=== PATIENT | female | born 1980 | race Caucasian/White ===

== ENCOUNTER 2018-08-07 14:12 | Outpatient (CLI) | payer MEDICAID, SELFPAY ==
--- NOTE | 2018-08-07 14:24 | DI.US_ITS ---
SYMPTOM/DIAGNOSIS: G3 T2 PO AO L2, OB ULTRASOUND: No prior comparison exams are available. There is a single intrauterine gestation in cephalic position. The placenta is posterior. The biometric measurements correspond to the 27 weeks 4 days. The estimated weight is 1019 grams, corresponding to the 82% percentile. The amount of amniotic fluid appears normal. There is dilatation of the left renal pelvis to 10 mm consistent with hydronephrosis. No bladder abnormality is identified. The right renal pelvis appears normal. IMPRESSION: Dilatation of the left renal pelvis. Many abnormalities cannot be diagnosed. A normal exam does not exclude a congenital anomaly. Radiology No. [id number] LMP: 01/31/18 Exam Date: 08/07/18 [facility] wks days on EDC ([facility]) 11/13/18 Confirmed: HISTORY: routine anatomy scan ---- PREDICTED GESTATIONAL AGE NUMBER 26 weeks with a range of 25 week to 27 weeks. 1 Determined by___1STUS_XX__LMP___HISTORY Info. pertaining to fetus # PLACENTA PRESENTATION Grade I Cephalic__XX_ Anterior___Posterior__XX_ Breech____ Right Left Transverse(head right___ Fundal___Low-lying___Previa___ Transverse(head left___ Varying BIOMETRY AMNIOTIC FLUID BPD: 70 mm 28 +1 weeks Normal HC: 265 mm 28 +6 weeks AC: 226 mm 27 - weeks FL: 49 mm 26 +3 weeks AMNIOTIC FLUID INDEX >26 WK CRL: mm weeks Cisterna Magna: 8 mm CI: 0,78 RUQ: LUQ Cerebellum: 3.0 cm EFW: 1019 grams 82% Percentile RLQ: LLQ Total: cms Composite AGE= 27 +4 wks EDC by US___11/02/18 BIOPHYSICAL PROFILE ANATOMY IDENTIFIED SCORE 0/2 Heart: 4-Chamber_X__Rate:BPM_143____ LVOT:____X RVOT:___X Amniotic Fluid(>2cms)____ Stomach:__X Kidneys:__X__See Below___ Respirations (>30 secs) Bladder:____X____ Post. Fossa: X Body Flex/Extension 3 vessel cord:__X Ventricles:____X cord insertion:_X____ Lips:__X__ Extremity Flex/Extension spinal morphology:_X Nose:X Total Score= Palate:___X____ NS=not seen COMMENTS: RIGHT URETERAL PEKLVIS 4.6 MM LEFT HYDRONEPHROSIS, PELVIS 10.3 MM
== END 2018-08-07 14:32 ==
PROVIDERS: PCP Family Medicine; Visit Provider Midwife
DX: Z34.92 Encounter for supervision of normal pregnancy, unspecified, second trimester (principal)
CPT/HCPCS: 76805

== ENCOUNTER 2018-12-20 17:28 | Emergency (ER) | payer MEDICAID, SELFPAY ==
--- NOTE | 2018-12-20 17:31 | W.ED.GENAD ---
Discharge Plan Disposition Patient Disposition: HOME Condition: Stable Discharge Details Chief Complaint: AnimalBite Clinical Impression: Dog bite of left lower leg Primary Care Provider: Sarah Jessica ED Provider: Cecilio Hollis Home Meds and New Rx's Prescriptions: New amoxicillin-pot clavulanate [Augmentin] 875-125 mg tablet 1 tab PO BID Qty: 10 RF: 0 No Action multivitamin Tablet 1 tab PO DAILY RF: 0 ascorbic acid (vitamin C) [Vitamin C] 500 mg Tablet 1,500 mg PO DAILY RF: 0 cholecalciferol (vitamin D3) [Vitamin D3] 1,000 unit Capsule 7,000 unit PO DAILY RF: 0 Discharge Instructions Instructions: Animal Bite (ED) Additional Instructions: if you develop severe worsening pain or fevers return to the emergency department for reevaluation Medical Decision Making 38 yo female who denies chronic medical problems comes in with left lower leg wound. She states she was bit by a vaccinated tenants dog last tuesday. She has had redness around it and clear fluid from central wound so came for an eval. Denies fevers. Has a 0.5cm area where the dog bit here with 2cm surrounding warm erythema skin. no fluctuance to suggest abscess, appears to be cellulitis and will start abx. She appears well systemically so doubt sepsis and no sever epain to suggest nec fasc. she should be updated on her tetanus vaccines but she is declining at this time after being told risks and benefits, has capacity to make her own decisions. Advised her pcp should be able to give her the tetanus vaccine Differential Diagnosis cellulitis, abscess HPI General Mode of arrival: ambulatory. Date/Time Provider Initiated Documentation: 12/20/18 17:30. Limitations to Documentation: no limitations. Information obtained by: patient. History of Present Illness 38 year old F presents to the emergency department with the chief complaint of left leg dog bite, described as mild, and is localized to the left and lower extremity. Patient reports no radiation. Patient started experiencing this day(s) (5) and it has been constant. No relieving factors improve symptom(s), No exacerbating factors reported . Patient did receive the following treatments prior to arrival, none Related Data Home Medications Medication Instructions Recorded Confirmed amoxicillin-pot clavulanate 1 tab PO BID #10 tab 12/20/18 [Augmentin] ascorbic acid (vitamin C) [Vitamin 1,500 mg PO DAILY 12/20/18 12/20/18 C] cholecalciferol (vitamin D3) 7,000 unit PO DAILY 12/20/18 12/20/18 [Vitamin D3] multivitamin 1 tab PO DAILY 12/20/18 12/20/18 Previous Rx's Medication Instructions Recorded amoxicillin-pot clavulanate 1 tab PO BID #10 tab 12/20/18 [Augmentin] Allergies Allergy/AdvReac Type Severity Reaction Status Date / Time No Known Allergies Allergy Unverified 12/20/18 17:39 Review of Systems Review of Systems All systems reviewed & are unremarkable except as noted in HPI and below Constitutional Denies chills, Denies fever(s) and Denies weakness Cardiovascular Denies chest pain and Denies dyspnea Respiratory Denies cough and Denies dyspnea Gastrointestinal Denies abdominal pain, Denies nausea and Denies vomiting Neurologic Denies weakness Endocrine Denies heat intolerance PFSH Social History Smoking/Tobacco Use Status: Never Alcohol Intake: never Drug use: Never Substance use type: does not use Do you feel safe at home: Yes Do you feel safe in your relationship?: Yes Exam Const General: no acute distress Orientation: alert HENMT Head: normal to inspection Ears: external ears normal General nose exam: external nose normal Mouth: moist mucous membranes Eyes General: appearance normal, both eyes and all related structures Neck Neck: normal visual inspection Resp Effort & Inspection: normal respiratory effort and able to speak in complete sentences Cardio Rate: regular rate Skin General skin exam: no rashes or lesions noted Neuro General: alert and oriented x3 Extrem General: normal capillary refill Psych Mental Status: mental status grossly normal
[2018-12-20 17:34] VITALS: BP 138/84; PULSE 71; RESP 18; TEMP 36.7; O2SAT 99
--- NOTE | 2018-12-20 17:49 | ED.GENADUL_ITS ---
Discharge Plan Disposition Patient Disposition: HOME Condition: Stable Discharge Details Chief Complaint: AnimalBite Clinical Impression: Dog bite of left lower leg Primary Care Provider: Sarah Jessica ED Provider: Cecilio Hollis Home Meds and New Rx's Prescriptions: New amoxicillin-pot clavulanate [Augmentin] 875-125 mg tablet 1 tab PO BID Qty: 10 RF: 0 No Action multivitamin Tablet 1 tab PO DAILY RF: 0 ascorbic acid (vitamin C) [Vitamin C] 500 mg Tablet 1,500 mg PO DAILY RF: 0 cholecalciferol (vitamin D3) [Vitamin D3] 1,000 unit Capsule 7,000 unit PO DAILY RF: 0 Discharge Instructions Instructions: Animal Bite (ED) Additional Instructions: if you develop severe worsening pain or fevers return to the emergency department for reevaluation Medical Decision Making 38 yo female who denies chronic medical problems comes in with left lower leg wound. She states she was bit by a vaccinated tenants dog last tuesday. She has had redness around it and clear fluid from central wound so came for an eval. Denies fevers. Has a 0.5cm area where the dog bit here with 2cm surrounding warm erythema skin. no fluctuance to suggest abscess, appears to be cellulitis and will start abx. She appears well systemically so doubt sepsis and no sever epain to suggest nec fasc. she should be updated on her tetanus vaccines but she is declining at this time after being told risks and benefits, has capacity to make her own decisions. Advised her pcp should be able to give her the tetanus vaccine Differential Diagnosis cellulitis, abscess HPI General Mode of arrival: ambulatory . Date/Time Provider Initiated Documentation: 12/20/18 17:30 . Limitations to Documentation: no limitations . Information obtained by: patient . History of Present Illness 38 year old F presents to the emergency department with the chief complaint of left leg dog bite, described as mild, and is localized to the left and lower extremity. Patient reports no radiation. Patient started experiencing this day(s) (5) and it has been constant. No relieving factors improve symptom(s), No exacerbating factors reported . Patient did receive the following treatments prior to arrival, none Related Data Home Medications Medication Instructions Recorded Confirmed amoxicillin-pot clavulanate 1 tab PO BID #10 tab 12/20/18 [Augmentin] ascorbic acid (vitamin C) [Vitamin 1,500 mg PO DAILY 12/20/18 12/20/18 C] cholecalciferol (vitamin D3) 7,000 unit PO DAILY 12/20/18 12/20/18 [Vitamin D3] multivitamin 1 tab PO DAILY 12/20/18 12/20/18 Previous Rx's Medication Instructions Recorded amoxicillin-pot clavulanate 1 tab PO BID #10 tab 12/20/18 [Augmentin] Allergies Allergy/AdvReac Type Severity Reaction Status Date / Time No Known Allergies Allergy Unverified 12/20/18 17:39 Review of Systems Review of Systems All systems reviewed & are unremarkable except as noted in HPI and below Constitutional Denies chills, Denies fever(s) and Denies weakness Cardiovascular Denies chest pain and Denies dyspnea Respiratory Denies cough and Denies dyspnea Gastrointestinal Denies abdominal pain, Denies nausea and Denies vomiting Neurologic Denies weakness Endocrine Denies heat intolerance PFSH Social History Smoking/Tobacco Use Status: Never Alcohol Intake: never Drug use: Never Substance use type: does not use Do you feel safe at home: Yes Do you feel safe in your relationship?: Yes Exam Const General: no acute distress Orientation: alert HENMT Head: normal to inspection Ears: external ears normal General nose exam: external nose normal Mouth: moist mucous membranes Eyes General: appearance normal, both eyes and all related structures Neck Neck: normal visual inspection Resp Effort & Inspection: normal respiratory effort and able to speak in complete sentences Cardio Rate: regular rate Skin General skin exam: no rashes or lesions noted Neuro General: alert and oriented x3 Extrem General: normal capillary refill Psych Mental Status: mental status grossly normal
--- NOTE | 2018-12-21 11:46 | NUR.NOTE ---
Nursing Note: Unable to access the [facility] website for [facility] health officers. Called [facility] Clerk this morning and faxed the animal bite report to that office for follow up. She stated she would be sure health officer got the information. Chrissie Zamora
== END 2018-12-20 17:56 | disposition home or self-care (01) ==
PROVIDERS: Emergency Provider Emergency Medicine; PCP Family Medicine
DX: S81.852A Open bite, left lower leg, initial encounter (principal); W54.0XXA Bitten by dog, initial encounter
CPT/HCPCS: 99283

== ENCOUNTER 2019-11-26 09:33 | Outpatient (CLI) | payer MEDICAID, SELFPAY ==
[2019-11-27 17:45] LABS: SARS-CoV-2 RNA Undetected (Undetected); SARS-CoV-2 Specimen Source Nasopharynx
== END 2019-11-26 09:53 ==
PROVIDERS: Family Medicine; PCP Family Medicine; Visit Provider Registered Nurse
DX: Z20.828 Contact with and (suspected) exposure to other viral communicable diseases (principal); Z11.59 Encounter for screening for other viral diseases; R05 Cough
CPT/HCPCS: 87449; U0003

== ENCOUNTER 2021-06-30 17:03 | Outpatient (REF) | payer MEDICAID, SELFPAY ==
[2021-06-30 21:39] LABS: Hemoglobin A1C 5.7 % (<5.7)
[2021-06-30 21:49] LABS: ALT 19 U/L (14-59); AST 14 U/L (15-37); Albumin 3.7 g/dL (3.4-5.0); Alkaline Phosphatase 67 U/L (46-116); Anion Gap 9.9 mmol/L (3-11); BUN 11 mg/dL (7-18); Bilirubin, Total 0.3 mg/dL (0.2-1.0); CO2 26.1 mmol/L (21.0-32.0); CREATININE 0.8 mg/dL (0.55-1.02); Calculated LDL 115 mg/dL (<100); Chloride 104 mmol/L (98-107); Cholesterol 177 mg/dL (<200); Glucose 88 mg/dL (74-106); HDL Cholesterol 38 mg/dL (40-60); Potassium 4.2 mmol/L (3.5-5.1); Sodium 140 mmol/L (136-145); TSH (W/Ref FT4) 1.98 uIU/mL (0.36-3.74); Total Protein 7.1 g/dL (6.4-8.2); Triglyceride 122 mg/dL (<150)
== END 2021-06-30 17:04 | disposition home or self-care (01) ==
LOC: NCHCN 17:03
PROVIDERS: PCP Family Medicine; Visit Provider Family Medicine
DX: Z13.220 Encounter for screening for lipoid disorders (principal); Z13.1 Encounter for screening for diabetes mellitus; E66.9 Obesity, unspecified
CPT/HCPCS: 80053; 80061; 83036; 84443

== ENCOUNTER 2021-07-08 11:29 | Outpatient (REF) | payer MEDICAID, SELFPAY ==
--- NOTE | 2021-07-08 08:45 | PAPFT_PTH ---
PATIENT: Eunice Zamudio LOC: [facility] U#:[id number] AGE/SX: 40/F ROOM: RE07/08/[address]: Caroline Cochran CNM : 1980 BED: DIS: 07/08/2021 SPEC #: [id number] RECD: 07/08/21 13:10 STATUS: PATRICIA RELondon #: [id number] MEÑO: 07/08/21 08:[address]: Caroline Cochran [facility]PT[facility] Cytology RECD BY: Britta Bowden ENTERED: 07/08/21 13:10 SP TYPE: PAPFT OTHR DR: Sarah Jessica Tissues: 1 - CX/ENDOCX FOR PAP SMEARS Procedures: PAP THIN PREP/UVM Screening HPV DNA PROBE Comments:
== END 2021-07-08 11:30 | disposition home or self-care (01) ==
LOC: LBN 11:29
PROVIDERS: PCP Family Medicine; Visit Provider Advanced Practice Midwife
DX: Z12.4 Encounter for screening for malignant neoplasm of cervix (principal); Z11.51 Encounter for screening for human papillomavirus (HPV)
CPT/HCPCS: 88142; 87624

== ENCOUNTER 2022-05-04 12:39 | Outpatient (REF) | payer MEDICAID, SELFPAY ==
--- NOTE | 2022-05-04 10:10 | SKI_PTH ---
PATIENT: Eunice Zamudio LOC: [facility] U#:[id number] AGE/SX: 41/F ROOM: RE05/04/[address]: Sherlyn oHllis MD : 1980 BED: DIS: 05/04/2022 SPEC #: [id number] RECD: 05/04/22 12:44 STATUS: PATRICIA RELondon #: [id number] MEÑO: 05/04/22 10:[address]: Sherlyn Hollis DEPT: Surgical Specimen RECD BY: Britta Bowden ENTERED: 05/04/22 12:45 SP TYPE: BOBBY HEIN DR: Sarah Jessica Tissues: 1 - SKIN BIOPSY(SHAVE/PUNCH) Procedures: IMMUNOPEROXIDASE STAIN SKIN LEVEL 4 Comments: [id number]
== END 2022-05-04 12:40 | disposition home or self-care (01) ==
LOC: LBN 12:39
PROVIDERS: PCP Family Medicine; Visit Provider Surgery
DX: D17.0 Benign lipomatous neoplasm of skin and subcutaneous tissue of head, face and neck (principal)
CPT/HCPCS: 88305; 88361

== ENCOUNTER 2022-08-16 16:54 | Emergency (ER) | payer MEDICAID, SELFPAY ==
[2022-08-16 17:03] VITALS: BP 151/91; PULSE 70; RESP 16; TEMP 36.9; O2SAT 100
--- NOTE | 2022-08-16 17:22 | W.ED.GENAD ---
Discharge Plan Disposition Patient Disposition: Home Condition: Good Discharge Details Clinical Impression: Headache Primary Care Provider: Sarah Jessica ED Provider: Blaine Bowman Home Meds and New Rx's Prescriptions: No Action cbd PO DAILY Adult 50 Plus Probiotic 4 billion cell capsule PO multivitamin Tablet 1 tab PO DAILY cholecalciferol (vitamin D3) [Vitamin D3] 1,000 unit Capsule 7,000 unit PO DAILY Discharge Instructions Instructions: General Headache (ED) Additional Instructions: At this time your exam is reassuring. Your symptoms appear clinically consistent with a migraine headache causing an aura. As we discussed together we have decided to hold off on CT imaging at this time. Please take Tylenol and Motrin at home. Please drink plenty of fluids and follow-up closely with your primary care provider. If you notice any worsening of your symptoms, or any new symptoms such as vomiting, diarrhea, fever, chills, shortness of breath, chest pain, numbness, weakness, or fainting , please return immediately to the emergency department for reevaluation. Please follow up with your primary care provider as soon as possible for reassessment and reevaluation. As always, it was a pleasure participating in your medical care today. Referrals: Sarah Jessica [Primary Care Provider] - Medical Decision Making 42-year-old female with no significant past medical history except for occasional tension headaches presents today for evaluation of mild headache and some transient vision changes. Patient states that noon today she noticed some kaleidoscope like changes in her lateral vision in her left eye, this resolved after about 10 minutes. It then began in her right eye shortly thereafter, then within 15 to 20 minutes after this she developed a mild headache. The patient denies any headache red flags of worst headache of life, thunderclap headache, neck pain, fever, chills, concerning family history of polycystic kidney disease, Marfan syndrome, Linda-Danlos syndrome, abdominal aortic aneurysm, aortic dissection, or intracranial aneurysm. Currently the patient states that her headache is notably mild and dissipating. She states that the vision changes have completely resolved. She denies any family history of stroke, brain cancer at a young age, or other complaints. She denies any oral contraceptive use. No drugs or LSD. No other complaints at this time. Exam demonstrates a notably normal neurologic assessment, no focal neurologic deficits, retinal exam demonstrates normal optic disc, no evidence of a pale macula, or atypical vascular pathology. Vision is stable/normal. No nuchal rigidity. Headache notably dissipated at time of exam. No other abnormalities on exam. Patient denied any curtain coming down over her vision, she denies any lightning strikes in her vision, she denies any eye pain whatsoever. The headache itself was mild and in a bandlike sensation around the front of the head. Patient feels well. We discussed options of imaging, and through shared decision-making process, weighing the risks and benefits, utilizing family decision making we have decided with the patient to hold off on any CT imaging for the time being as his symptoms have resolved, and the symptoms that she does have appear to be clinically consistent with an aura secondary to a mild migraine. Patient would like to go home. I did make it clear to the patient that she can return at any time for imaging if she does like. I have extensively reviewed the treatment plan and discharge instructions with the patient and their family. I have addressed all patient concerns at this time. The patient and family was made aware of what symptoms to monitor for that would warrant a return to the emergency department. Discussed the plan with the patient and family, they demonstrate verbal understanding and agreement with our assessment and plan at this time. The documentation in this chart was dictated using [employer] dictation software. Please excuse any dictation errors. HPI General Date/Time Provider Initiated Documentation: 08/16/22 17:03. HPI Narrative: 42-year-old female with no significant past medical history except for occasional tension headaches presents today for evaluation of mild headache and some transient vision changes. Patient states that noon today she noticed some kaleidoscope like changes in her lateral vision in her left eye, this resolved after about 10 minutes. It then began in her right eye shortly thereafter, then within 15 to 20 minutes after this she developed a mild headache. The patient denies any headache red flags of worst headache of life, thunderclap headache, neck pain, fever, chills, concerning family history of polycystic kidney disease, Marfan syndrome, Linda-Danlos syndrome, abdominal aortic aneurysm, aortic dissection, or intracranial aneurysm. Currently the patient states that her headache is notably mild and dissipating. She states that the vision changes have completely resolved. She denies any family history of stroke, brain cancer at a young age, or other complaints. She denies any oral contraceptive use. No drugs or LSD. No other complaints at this time. Related Data Home Medications Medication Instructions Recorded Confirmed cholecalciferol (vitamin D3) 25 7,000 unit PO DAILY 12/20/18 05/18/22 mcg (1,000 unit) capsule (Vitamin D3) multivitamin 1 tab PO DAILY 12/20/18 05/18/22 cbd PO DAILY 07/08/21 05/18/22 lactobacillus combination no.9 4 PO 07/10/21 05/18/22 billion cell capsule (Adult 50 Plus Probiotic) Allergies Allergy/AdvReac Type Severity Reaction Status Date / Time No Known Allergies Allergy Unverified 05/04/22 09:57 General Stated Complaint: EyeProblem HERBER: 3 Review of Systems All systems reviewed & are unremarkable except as noted in HPI and below PFSH All Active Problems Headache (Acute) Skin lesion (Acute) Prolapse of female genital organs (Acute) Annual physical exam (Acute) Medical History Chronic right hip pain Elevated blood pressure reading in office without diagnosis of hypertension Lipoma of head Obesity (BMI 35.0-39.9 without comorbidity) Refused influenza vaccine Surgical History History of appendectomy Social History Smoking/Tobacco Use Status: Never Smoking risk assessment performed?: Yes Alcohol Intake: never Drug use: Never Substance use type: does not use Do you feel safe at home: Yes Do you feel safe in your relationship?: Yes History History 3 Para 3 Hx # Term Pregnancies Multiple births Hx # Pregnancies Ectopic pregnancies AB induced Hx Number of Living Children AB spontaneous Exam Narrative Exam Narrative: 1.Const: Well-nourished, Well-developed, appearing stated age 2.Eyes: PERRL, no conjunctival injection, and symmetrical lids. Left and right eye: EOMI, PERRL, Peripheral vision intact. No nystagmus. Fundoscopic exam shows normal optic discs and normal vasculature. No clinical signs of septal/orbital cellulitis, no redness around the eye, no proptosis. No hyphema, no signs of trauma around the eye, no periorbital emphysema. No sluggishness of the pupil. No ophthalmoplegia. No afferent pupillary defect. Visual acuity as documented in chart and normal Patient demonstrates good movement of cervical neck. There is no nuchal rigidity, no nuchal tenderness. Patient is able to flex the neck without any difficulty or significant pain. Negative Kernig's and Brudzinski sign. 3.ENT: Atraumatic external nose and ears. Moist MM. Neck: Symmetric, trachea midline, No thyromegaly. 4.CVS: +S1/S2, No murmurs or gallops. Peripheral pulses 2+ and equal in all extremities. Brisk capillary refill in all extremities. 5.RESP: Unlabored respiratory effort. Clear to auscultation bilaterally. No wheezes rales or rhonchi 6.GI: Soft, Nontender/Nondistended, No hepatosplenomegaly. No guarding or rebound. 7.MSK: Normocephalic/Atraumatic, Extremities w/o deformity or ttp No cyanosis or clubbing, Normal movement of all extremities 8.Skin: Warm, Dry. No rashes or lesions. 9.Neuro: professor of fine art II-XII grossly intact. Sensation grossly intact, no focal neurologic deficits. All 6 cardinal planes of vision are fully intact. No evidence of rotatory or vertical nystagmus. The patient demonstrated a normal evratf-kxmb-kqryun, good dexterity. There was no evidence of dysdiadochokinesia. Patient was able to ambulate without difficulty. There was no wide-based gait. Romberg testing was normal. Sciu-ag-fdvp testing was normal. Sensation was intact bilaterally as well as muscle strength bilaterally for all extremities. Patient was able to verbalize butter cup with no slurring, or miss pronunciation. 10.Psych: (AAO) x3. Appropriate mood and affect Course Vital Signs Vital signs: Vital Signs Temperature 36.9 C 08/16/22 17:03 Pulse 70 08/16/22 17:03 Respiratory Rate 16 08/16/22 17:03 Blood Pressure 151/91 H 08/16/22 17:03 Pulse Oximetry 100 08/16/22 17:03 Temperature 36.9 C 08/16/22 17:03 Temperature Source Skin 08/16/22 17:03 Pulse 70 08/16/22 17:03 Respiratory Rate 16 08/16/22 17:03 Blood Pressure 151/91 H 08/16/22 17:03 Blood Pressure Position Sitting 08/16/22 17:03 Pulse Oximetry 100 08/16/22 17:03 Oxygen Delivery Method Room Air 08/16/22 17:03 Oxygen Flow Rate 0 08/16/22 17:03 Pain Level 5 08/16/22 17:03
== END 2022-08-16 17:36 | disposition home or self-care (01) ==
PROVIDERS: Emergency Provider Student in an Organized Health Care Education/Training Program; PCP Family Medicine
DX: R51.9 Headache, unspecified (principal); H53.8 Other visual disturbances
CPT/HCPCS: 99282

== ENCOUNTER 2022-10-19 01:41 | Outpatient (CLI) | payer MEDICAID, SELFPAY ==
--- NOTE | 2022-10-19 08:00 | DI.MAMMO_ITS ---
Exam(s) MAMMO SCREENING EXAM: MAMMO SCREENING CLINICAL HISTORY: screening,Z12.39 TECHNIQUE: Bilateral full field digital CC and MLO mammographic images were obtained with 3D tomosyn thesis and utilizing computer aided detection (CAD). COMPARISON: None. FINDINGS: Masses/Architectural Distortion: None seen. Microcalcifications: No suspicious pleomorphic-type are seen. Skin Thickening/Nipple Retraction: None. IMPRESSION: 1. No significant interval change with no specific features of malignancy noted. 2. Unless there is more urgent need, screening mammography is recommended, as per [employer] guidelines. BI-RADS Category 1 - Negative Breast Density - Category B - Scattered areas of fibroglandular density Breast density category C or D implies that the patient has dense breast tissue. Dense breast tissue is very common and is not abnormal but dense breast tissue can make it harder to find cancer on a ma mmogram. Also, dense breast tissue may increase their breast cancer risk. This information about the result of the mammogram report was provided to the patient to raise their awareness. Use this report when you speak with the patient about their risks for breast cancer, which includes their family hist ory. At that time, you may recommend for more screening tests (Ultrasound or MRI) as they might be us eful based on their risk. A negative radiographic report should not delay biopsy if a dominant or clinically suspicious mass is present. Up to ten percent of cancers are not identified on mammography. A negative report may reinforce clinical impression. Adenosis and dense breasts may obscure an underlying neoplasm. False positive reports average 6 to 10%. Patient will receive a letter notifying them of these results.
== END 2022-10-19 02:01 ==
LOC: DI 01:42
PROVIDERS: PCP Family Medicine; Visit Provider Nurse Practitioner Women's Health
DX: Z12.31 Encounter for screening mammogram for malignant neoplasm of breast (principal)
CPT/HCPCS: 77063; 77067

== ENCOUNTER 2022-11-01 00:56 | Outpatient (CLI) | payer MEDICAID, SELFPAY ==
--- NOTE | 2022-11-01 06:45 | DI.US_ITS ---
Exam(s) US PELVIS TRANSVAGINAL EXAM: US PELVIS TRANSVAGINAL CLINICAL HISTORY: Pelvic cramping, postcoital bleeding,r10.2,pelvic pain TECHNIQUE: Transabdominal and transvaginal imaging was performed using standard protocol. COMPARISON: No exams were available for comparison FINDINGS: UTERUS: Anteverted. 8.5 x 5.6 x 6.4 cm Endometrium: 8 mm Myometrium: Unremarkable. Cervix: Unremarkable. OVARIES: Right: Cyst or mass: 2.4 centimeter para ovarian cyst. Left: Cyst or mass: None. DOPPLER: Color: Symmetric and uniform flow to both ovaries. No hyperemia. CUL-DE-SAC: Free fluid: Small amount IMPRESSION: 1. Normal-appearing uterus with endometrial stripe within normal limits. 2. 2.4 centimeter right para ovarian cyst. DATA REPOSITORY:
== END 2022-11-01 01:16 ==
LOC: DI 00:56
PROVIDERS: PCP Family Medicine; Visit Provider Nurse Practitioner Women's Health
DX: R10.2 Pelvic and perineal pain (principal); N93.0 Postcoital and contact bleeding; N83.291 Other ovarian cyst, right side
CPT/HCPCS: 76830; 76856

== ENCOUNTER 2022-12-13 00:36 | Outpatient (CLI) | payer MEDICAID, SELFPAY ==
--- NOTE | 2022-12-13 07:00 | DI.US_ITS ---
Exam(s) US PELVIS TRANSVAGINAL EXAM: US PELVIS TRANSVAGINAL CLINICAL HISTORY: f/u R paraovarian cyst,Q50.5 TECHNIQUE: Ultrasound of the pelvis was performed both transabdominal and transvaginal. COMPARISON: US US PELVIS TRANSVAGINAL from 11/01/2022 FINDINGS: UTERUS: Measures 9 cm length x 5 cm AP x 6 cm wide. There are no uterine fibroids. Endometrial thickness measures 6 mm. There is no fluid in the endometrial canal. CERVIX: There are no obvious nabothian cysts. RIGHT OVARY: Measures 3.8 x 2 by 3 cm In addition to sub cm follicular cysts there is a paraovarian cyst measuring 2.2 x 2.5 x 1.7 cm, non septated. Mild surrounding free fluid. LEFT OVARY: Measures 0.6 x 3 point by 2.5 cm Contains small sub cm follicular cysts. No surrounding fluid. IMPRESSION: 1. Normal appearing uterus and age-appropriate endometrium. 2. In addition to sub cm follicular cysts there is a paraovarian cyst in the right adnexa measuring 0 .2 x 2.5 cm. There is small amount of surrounding fluid in this region. 3. No paraovarian cyst on the opposite-left side. DATA REPOSITORY:
== END 2022-12-13 00:56 ==
LOC: DI 00:36
PROVIDERS: PCP Family Medicine; Visit Provider Nurse Practitioner Women's Health
DX: Q50.5 Embryonic cyst of broad ligament (principal)
CPT/HCPCS: 76830; 76856

== ENCOUNTER 2022-12-28 04:58 | Outpatient (CLI) | payer MEDICAID, SELFPAY ==
[2022-12-28 16:38] LABS: HCT 41.8 % (36.0-46.0); HGB 14.1 g/dL (11.2-15.7); MCH 30.1 pg (27.0-33.0); MCHC 33.7 % (32.0-36.0); MCV 89 fL (80-95); MPV 10.3 fL (8.0-11.0); Platelet Count 284 10^3/uL (130-400); RBC 4.68 10^6/uL (3.93-5.22); RDW 11.7 % (11.7-14.6); RDW-SD 37.8 fL; WBC 7.75 10^3/uL (4.4-10.8)
[2022-12-28 17:11] LABS: Anion Gap 8.4 mmol/L (3-11); BUN 14 mg/dL (7-18); CO2 25.6 mmol/L (21.0-32.0); CREATININE 0.8 mg/dL (0.55-1.02); Calcium 8.5 mg/dL (8.5-10.1); Chloride 106 mmol/L (98-107); Estimated GFR 94.28 (mL/min/1.73m2); Glucose 101 mg/dL (74-106); Potassium 4.3 mmol/L (3.5-5.1); Sodium 140 mmol/L (136-145)
[2022-12-28 17:20] LABS: HCG Qual (Serum) Negative
== END 2022-12-28 04:59 | disposition home or self-care (01) ==
LOC: LBO 04:59
PROVIDERS: PCP Family Medicine; Visit Provider Obstetrics & Gynecology Gynecology
DX: Z01.818 Encounter for other preprocedural examination (principal)
CPT/HCPCS: 36415; 80048; 85027; 86850; 86900; 86901; 84703

== ENCOUNTER 2022-12-30 10:28 | Day surgery (SDC) | payer MEDICAID, SELFPAY ==
[2022-12-30 10:40] VITALS: BP 131/76; PULSE 70; RESP 18; TEMP 36.5; O2SAT 98
[2022-12-30] MEDS: Lactated Ringers 1,000 ML 125 ML IV (11:00)
--- NOTE | 2022-12-30 13:38 | NUR.NOTE ---
Nursing Note: Patient arrived to [facility] today [id number]. Patient procedure Lap salpingectomy delayed d/t equipment. At 1020 patient reported she would like postpone because her childcare time was running out. Dr. Orozco in to speak to the patient and her . Dr. Orozco notified the OR that patient decided to reschedule. Patient IV D/C'd at 1335. Patient dressed herself and ambulated with her with all belonging to their car.
== END 2022-12-30 10:29 | disposition home or self-care (01) ==
PROVIDERS: PCP Family Medicine; Visit Provider Obstetrics & Gynecology Gynecology
DX: Z53.8 Procedure and treatment not carried out for other reasons (principal)
CPT/HCPCS: J1100; J2405; J2704

== ENCOUNTER 2023-01-25 04:15 | Outpatient (CLI) | payer MEDICAID, SELFPAY ==
[2023-01-25 08:51] LABS: HCT 44.5 % (36.0-46.0); HGB 14.9 g/dL (11.2-15.7); MCH 30.3 pg (27.0-33.0); MCHC 33.5 % (32.0-36.0); MCV 90 fL (80-95); MPV 10.6 fL (8.0-11.0); Platelet Count 285 10^3/uL (130-400); RBC 4.92 10^6/uL (3.93-5.22); RDW 11.9 % (11.7-14.6); RDW-SD 39.4 fL; WBC 6.02 10^3/uL (4.4-10.8)
[2023-01-25 09:10] LABS: Anion Gap 5.8 mmol/L (3-11); BUN 11 mg/dL (7-18); CO2 29.2 mmol/L (21.0-32.0); CREATININE 0.9 mg/dL (0.55-1.02); Calcium 8.7 mg/dL (8.5-10.1); Chloride 107 mmol/L (98-107); Estimated GFR 81.86 (mL/min/1.73m2); Glucose 105 mg/dL (74-106); Potassium 4.1 mmol/L (3.5-5.1); Sodium 142 mmol/L (136-145)
[2023-01-25 09:57] LABS: HCG Qual (Serum) Negative
== END 2023-01-25 04:16 | disposition home or self-care (01) ==
LOC: LBO 04:15
PROVIDERS: PCP Family Medicine; Visit Provider Obstetrics & Gynecology Gynecology
DX: R10.2 Pelvic and perineal pain (principal); N83.8 Other noninflammatory disorders of ovary, fallopian tube and broad ligament; Z01.818 Encounter for other preprocedural examination; Z01.812 Encounter for preprocedural laboratory examination
CPT/HCPCS: 36415; 80048; 85027; 86850; 86900; 86901; 84703

== ENCOUNTER 2023-01-26 10:22 | Day surgery (SDC) | payer MEDICAID, SELFPAY ==
[2023-01-26] VITALS (9 sets, daily range): BP systolic 104–124; BP diastolic 45–88; PULSE 55–76; RESP 12–16; TEMP 36.5–36.7; O2SAT 96–100; BMI 37.8
[2023-01-26] MEDS: Lactated Ringers 1,000 ML 125 ML IV (11:18)
--- NOTE | 2023-01-26 12:46 | W.ANESPRE ---
General Info Date of Service Date Performed: 01/26/23 Height: 5 ft 7.5 in Weight: 111 kg Body Mass Index (BMI): 37.8 Surgical Procedure: Operation Date: 01/26/23 11:25 Proposed Procedure Side Surgeon p Laparoscopic Removal Para Tubal Cyst Right Mechelle Orozco MD Meds Allergies and Home Medications Allergies Allergy/AdvReac Type Severity Reaction Status Date / Time No Known Allergies Allergy Unverified 01/26/23 10:55 Home Medication Medication Instructions Recorded cholecalciferol (vitamin D3) 25 7,000 unit PO DAILY 12/20/18 mcg (1,000 unit) capsule (Vitamin D3) multivitamin 1 tab PO DAILY 12/20/18 ibuprofen 200 mg tablet 200 mg PO Q6H PRN 12/15/22 milk thistle 200 mg capsule 600 mg PO DAILY 12/29/22 Current Visit Medications: Current Medications Generic Name Dose Route Start Last Admin Trade Name Freq PRN Reason Stop Dose Admin Ringer's Solution 1,000 mls @ 125 mls/hr 01/26/23 06:00 01/26/23 11:18 IV 01/26/23 16:00 125 mls/hr INFUSION ELIAS Administration IV Miscellaneous Supplies 1 each 01/26/23 06:00 Iv Access IV 01/26/23 23:59 DIRECTED ELIAS Sodium Chloride 0 ml 01/26/23 06:00 Normal Saline Flush 10 Ml Syr IV 01/26/23 23:59 PRN PRN Sodium Chloride 0 ml 01/26/23 06:00 Normal Saline 10 Ml Vial IJ 01/26/23 23:59 DIRECTED PRN Sterile Water 0 ml 01/26/23 06:00 Water,Injection,Sterile 10 Ml Vial IJ 01/26/23 23:59 DIRECTED PRN PFSH Active Problems Active Problems: Problem Status Onset Code Preop examination Z01.818 Chronic RLQ pain R10.31, G89.29 Paratubal cyst N83.8 Elevated blood pressure reading in office without diagnosis of hypertension R03.0 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 Annual physical exam Z00.00 Medical History Medical History Chronic right hip pain Lipoma of head Obesity (BMI 35.0-39.9 without comorbidity) Refused influenza vaccine Surgical History Surgical History History of appendectomy Tobacco Smoking/Tobacco Use Status: Former Tobacco Use Alcohol Alcohol Intake: never Substance Use Substance use: Never Substance use type: does not use Prental History History 3 Para 3 Hx # Term Pregnancies Multiple births Hx # Pregnancies Ectopic pregnancies AB induced Hx Number of Living Children AB spontaneous Vital Signs and Lab Results Vital Signs Most Recent Vital Signs in EMR: Most Recent Vital Signs Temp Pulse Resp BP Pulse Ox 36.7 C 71 16 124/88 99 01/26/23 11:00 01/26/23 11:00 01/26/23 11:00 01/26/23 11:00 01/26/23 11:00 Lab Results Blood Type / Crossmatch: Patient ABO/Rh O Positive 01/25/23 Antibody Screen NEGATIVE 01/25/23 Complete Blood Count: White Blood Count 6.02 10^3/uL (4.4-10.8) 01/25/23 08:40 Red Blood Count 4.92 10^6/uL (3.93-5.22) 01/25/23 08:40 Hemoglobin 14.9 g/dL (11.2-15.7) 01/25/23 08:40 Hematocrit 44.5 % (36.0-46.0) 01/25/23 08:40 Platelet Count 285 10^3/uL (130-400) 01/25/23 08:40 Complete Metabolic Panel: Sodium 142 mmol/L (136-145) 01/25/23 08:40 Potassium 4.1 mmol/L (3.5-5.1) 01/25/23 08:40 Chloride 107 mmol/L (98-107) 01/25/23 08:40 Carbon Dioxide 29.2 mmol/L (21.0-32.0) 01/25/23 08:40 BUN 11 mg/dL (7-18) 01/25/23 08:40 Creatinine 0.9 mg/dL (0.55-1.02) 01/25/23 08:40 Est GFR (CKD-EPI 2020) 81.86 (mL/min/1.73m2) 01/25/23 08:40 Calcium 8.7 mg/dL (8.5-10.1) 01/25/23 08:40 Glucose 105 mg/dL (74-106) 01/25/23 08:40 Liver Function Panel: No Data to Display Coagulation Panel: No Data to Display Cardiac Panel: No Data to Display Arterial Blood Gas: No Data to Display Venous Blood Gas: No Data to Display Pancreas Panel: No Data to Display Thyroid Panel: No Data to Display Infectious Disease: No Data to Display Blood Cultures: No Data to Display Toxicology Panel: No Data to Display Panel: Serum HCG, Qualitative Negative 01/25/23 08:40 Anesthesia Assessment and Plan Anesthesia History Personal History: No History of Anesthesia Complications Family History: No Family History of Anesthesia Complications Exercise Tolerance Exercise Tolerance: Metabolic Equivalents>4 Pertinent Negatives Pertinent Negatives: No Symptoms of GERD, No Major Cardiovascular Symptoms or Complaints and No Major Pulmonary Symptoms or Complaints Cardiac & Pulmonary Exam Cardiac Exam: Normal S1/S2 Heart Sounds Pulmonary Exam: Clear Bilateral Breath Sounds Implantable Cardiac Device Does patient have a Pacemaker or an ICD?: No Airway Exam Known Difficult Airway: No Mallampati Class: 1 Mouth Opening: Normal (> 3cm) Thyromental Distance: Greater than 3 cm Neck Range of Motion: Full ROM Neck Circumference: Normal Teeth Condition: Normal Dentition ASA Classification ASA Score: ASA 2 Emergency Case?: No NPO Status NPO Status: NPO Clears >2 hours, Solids >8 hours Status Status: Negative HCG Anesthesia Plan Resuscitation Status: Full Code Anesthesia Technique: General Anesthesia Airway Planned: Endotracheal Tube Monitors Used: Standard Monitors
--- NOTE | 2023-01-26 14:20 | FALL_PTH ---
PATIENT: Eunice Zamudio LOC: [facility] U#:[id number] AGE/SX: 42/F ROOM: RE01/26/[address]: Mechelle Orozco : 1980 BED: DIS: 01/26/2023 SPEC #: [id number] RECD: 01/26/23 18:32 STATUS: PATRICIA REQ #: [id number] MEÑO: 01/26/23 14:[address]: Mechelle Orozco DEPT: Surgical Specimen RECD BY: Britta Bowden ENTERED: 01/26/23 18:33 SP TYPE: Fall OTHR DR: Sarah Jessica Tissues: 1 - FALLOPIAN TUBE (OTHER) Procedures: GROSS AND MICRO LEVEL 3 Comments: [id number]
[2023-01-26] MEDS: Bupivacaine 0.25% Pres-Free 30 ML VIAL (14:46)
--- NOTE | 2023-01-26 14:49 | PDOC.DSDIS_ITS ---
Date of service: 01/26/23 Time of Service: 14:49 Discharge Plan Disposition Patient Disposition: Home Condition: Good Discharge Details Reason For Visit: laparoscopic right paratubal cystectomy. Attending Provider: Mechelle Orozco Primary Care Provider: Sarah Jessica Home Meds and New Rx's Prescriptions: No Action ibuprofen 200 mg tablet 200 mg PO Q6H PRN multivitamin Tablet 1 tab PO DAILY cholecalciferol (vitamin D3) [Vitamin D3] 1,000 unit Capsule 7,000 unit PO DAILY milk thistle 200 mg Capsule 600 mg PO DAILY Discharge Instructions Additional Instructions: Keep your postop appointment with Dr. Orozco in 2 weeks. Use the Ibuprofen and Acetaminophen for mild pain. Use the Percocet for pain not relieved by the Ibuprofen and Acetaminophen. You may change the bandaids over your incisions and steristrips.. Stand Alone Forms: [facility] Post Service Observer Chief SurgeryW/Incision Activity:: Activity as Tolerated Remove Dressings/Wound Care:: 24 hours Shower/Bathe:: 24 hours Diet:: As Tolerated Discharge Orders Discharge Orders: Discharge Order (Routine); Ordered 01/26/23 Ordered By: Mechelle Orozco
--- NOTE | 2023-01-26 14:54 | W.PM.OP ---
Date of service: 01/26/23 Time of Service: 14:54 Operative Note Operative Note DATE OF PROCEDURE: 01/26/23 PRE-OP DIAGNOSIS: pelvic pain, R sided paratubal cyst lysis of adhesions of omentum to right side of pelvic side wall. PROCEDURE: Laparoscopic right sided paratubal cystectomy. Lysis of adhesions of the omentum to R abdominal side wall. SURGEON: Mechelle Orozco ASSISTING SURGEON: Arminda Bennett ANESTHESIA TYPE: General LMA/ETT Refer to Anesthesia Record ESTIMATED BLOOD LOSS: 0 PATHOLOGY: other (R sided paratubal cyst.) COMPLICATIONS: None Patient was transported to: PACU Patient's condition: stable Indications: 42 yo female with history of pelvic pain who was found on ultrasound to have right sided paratubal cyst. Onset of pain approximately around of her last child. The pain is not localized to the right side of her pelvis and is sometimes associated with menses. She reports that the pain is deep and always with her. She occasionally takes NSAIDs. No alleviating factors. Findings: Smooth walled R paratubal cyst attatched along the length of the right fallopian tube. Normal right ovary and left adnexa. Adhesion of the omentum to the length of the right pelvic side wall superior to the right adnexa and inferior to the lower aspect of the liver. Procedure Description: Patient was taken to the operating room where she was placed in the dorsal supine position and endotracheal anesthesia was administered.? She was then placed in the dorsolithotomy position in yellowfin stirrups and prepped in the usual sterile fashion.? SCDs were in place.? A surgical timeout was performed.? A Hulka uterine manipulator was inserted into the uterine cavity left and placed during the case. The umbilical fold was infiltrated with 0.25% Marcaine in a 12 mm vertical skin incision was made in the umbilicus . Through this incision a Verees needle connected to carbon dioxide gas was inserted into the abdomen and intra-abdominal placement confirmed by drop in the intra-abdominal pressure.? Once a pneumoperitoneum was established a 12 mm Visiport trocar was introduced into the abdomen under direct visualization.? The patient was then placed in Trendelenburg and approximately 6 cm diagonal to the left of the umbilical incision the skin was transilluminated, the subcutaneous tissue infiltrated with 0.25% Marcaine and then incised with a scalpel.? Under direct visualization a 5 mm port was placed in the lower quadrant. A similar technique was carried out on the right lower abdomen but the site of the trocar placement was more midline secondary to the adhesions of the omentum to the right anterior sidewall. After both trocars were inserted the abdomen was inspected with the above-noted findings. A LigaSure electrocautery device was used to clamp cauterize and transect the right mesosalpinx in proximity to the fimbria and along the ampulla effectively freeing the paratubal cyst. The cyst was then delivered through the 12 mm umbilical port. It inadvertently ruptured while being delivered through the 12 mm port. The pedicle sites was hemostatic. Using the LigaSure electrocautery device the adhesions of the omentum to the right pelvic side and abdominal wall were subsequently clamped cauterized and transected freeing the omentum from its attachments to the sidewall. The pedicle of both the omentum and pelvic sidewall were noted to be hemostatic. Under direct visualization both 5 mm lower ports were removed.? The pneumoperitoneum was deflated and the umbilical port site was removed.? The rectus fascia below the 12 mm port site was reapproximated with interrupted suture of 0 Vicryl.? The skin was reapproximated on the umbilical port site and the two 5 mm port sites with a running subcuticular closure of 4-0 Monocryl.? The edges of all port sites were reapproximated with Steri-Strips and covered with dry sterile dressing..? Patient was placed in the dorsal supine position awakened extubated and transported recovery area in stable condition.? All sponge lap needle counts correct x2.
[2023-01-26] MEDS: fentaNYL 100 MCG/2 ML VIAL IVP ×2 (15:12→15:19)
--- NOTE | 2023-01-26 16:01 | W.ANESPOSTOP ---
Postoperative Evaluation Date, Time and Location Date Performed: 01/26/23 Time Performed: 15:58 Patient Location: Day Surgery Unit Vital Signs Most Recent Imported Vital Signs: Most Recent Vital Signs Temp Pulse Resp BP Pulse Ox 36.6 C 62 16 107/45 L 97 01/26/23 15:45 01/26/23 15:45 01/26/23 15:45 01/26/23 15:45 01/26/23 15:45 Pain Score Most Recent Pain Score: Most Recent Pain Score Pain Level 7 01/26/23 15:45 Assessment Mental Status: Awake (Alert & Oriented to Patient Baseline) Airway and Respiratory Function: Patent airway with normal (patient baseline) respiratory exam Cardiovascular Function: Hemodynamically Stable Hydration Status: Adequately Hydrated Nausea & Vomiting: No Nausea or Vomiting Pain: Pain is tolerable per patient (Acute to port sites, states she is doing well) Peripheral Nerve Block: Patient did not receive a nerve block
[2023-01-26] MEDS: oxyCODONE 5 mg/Acetaminophen 325 mg TAB PO (16:11)
== END 2023-01-26 16:45 | disposition home or self-care (01) ==
PROVIDERS: PCP Family Medicine; Visit Provider Obstetrics & Gynecology Gynecology
PROC: (CPT 58661; principal; 2023-01-26 11:15)
DX: N83.8 Other noninflammatory disorders of ovary, fallopian tube and broad ligament (principal); K66.0 Peritoneal adhesions (postprocedural) (postinfection); R10.2 Pelvic and perineal pain
CPT/HCPCS: 58661; 58662; 88304; J0131; J1100; J1885; J2001; J2250; J2405; J2704; J3010

== ENCOUNTER 2023-03-17 00:40 | Outpatient (CLI) | payer MEDICAID, SELFPAY ==
--- NOTE | 2023-03-17 | DI.RAD_ITS ---
Exam(s) XR CERVICAL SPINE COMP 4-5V EXAM: XR CERVICAL SPINE COMP 4-5V CLINICAL HISTORY: CHRONIC NECK PAIN, M54.2,HEADACHE,G44.209,? DJD. TECHNIQUE: 2D digital imaging was performed. Five images were obtained. AP, odontoid, lateral and bi lateral oblique images were obtained. COMPARISON: No exams were available for comparison FINDINGS: The odontoid is intact. The lateral masses are well aligned. There is straightening of the normal ce rvical lordosis. This may be due to muscle spasm or patient positioning. Disc space narrowing and e ndplate osteophytes are seen at C6-C7. No acute fracture or subluxation is present. There is mild jennifer rowing of the neural foramen bilaterally at C6-C7. The cervical thoracic junction is well maintained. The prevertebral soft tissues are unremarkable. Lung apices are clear. IMPRESSION: Degenerative changes at C6-C7 resulting in mild bilateral neural foraminal stenosis. DATA REPOSITORY: RADIATION DOSE DELIVERED:
== END 2023-03-17 01:00 ==
LOC: DI 00:41
PROVIDERS: PCP Family Medicine; Visit Provider Family Medicine
DX: M48.02 Spinal stenosis, cervical region (principal)
CPT/HCPCS: 72050

== ENCOUNTER 2024-10-12 09:24 | Outpatient (REF) | payer MEDICAID, SELFPAY ==
--- NOTE | 2024-10-12 09:10 | PAPFT_PTH ---
PATIENT: Eunice Zamudio LOC: [facility] U#:[id number] AGE/SX: 44/F ROOM: RE10/12/[address]: Mechelle Orozco : 1980 BED: DIS: 10/12/2024 SPEC #: [id number] RECD: 10/12/24 13:15 STATUS: PATRICIA RELondon #: [id number] MEÑO: 10/12/24 09:[address]: Mechelle Orozco DEPT: [facility] Cytology RECD BY: Britta Bowden ENTERED: 10/12/24 13:15 SP TYPE: PAPFT OTHR DR: Sarah Jessica Tissues: 1 - CX/ENDOCX FOR PAP SMEARS Procedures: PAP THIN PREP/[facility] Screening HPV DNA PROBE Comments: [id number] (HPV 16 & 18/45)
== END 2024-10-12 09:25 | disposition home or self-care (01) ==
LOC: LBN 09:24
PROVIDERS: PCP Family Medicine; Visit Provider Obstetrics & Gynecology Gynecology
DX: Z11.51 Encounter for screening for human papillomavirus (HPV) (principal); Z01.419 Encounter for gynecological examination (general) (routine) without abnormal findings
CPT/HCPCS: 88142; 87624

== ENCOUNTER 2024-11-02 13:50 | Outpatient (REF) | payer MEDICAID, SELFPAY ==
[2024-11-02 21:54] LABS: ALT 17 U/L (14-59); AST 14 U/L (15-37); Albumin 3.6 g/dL (3.4-5.0); Alkaline Phosphatase 87 U/L (46-116); Anion Gap 7.4 mmol/L (3-11); BUN 17 mg/dL (7-18); Bilirubin, Total 0.4 mg/dL (0.2-1.0); CO2 26.6 mmol/L (21.0-32.0); CREATININE 0.9 mg/dL (0.55-1.02); Calculated LDL 97 mg/dL (<100); Chloride 108 mmol/L (98-107); Cholesterol 170 mg/dL (<200); Estimated GFR 80.84 (mL/min/1.73m2); Glucose 97 mg/dL (74-106); HDL Cholesterol 47 mg/dL (>or=50); Potassium 4.1 mmol/L (3.5-5.1); Sodium 142 mmol/L (136-145); Total Protein 7.4 g/dL (6.4-8.2); Triglyceride 130 mg/dL (<150)
[2024-11-02 22:08] LABS: Hemoglobin A1C 5.8 % (<5.7)
== END 2024-11-02 13:51 | disposition home or self-care (01) ==
LOC: NCHCN 13:50
PROVIDERS: PCP Family Medicine; Visit Provider Family Medicine
DX: E66.9 Obesity, unspecified (principal); Z13.1 Encounter for screening for diabetes mellitus; Z13.220 Encounter for screening for lipoid disorders
CPT/HCPCS: 80053; 80061; 83036

== ENCOUNTER 2024-11-09 00:13 | Outpatient (CLI) | payer MEDICAID, SELFPAY ==
--- NOTE | 2024-11-09 09:15 | DI.MAMMO_ITS ---
Exam(s) MAMMO SCREENING EXAM: MAMMO SCREENING CLINICAL HISTORY: screening TECHNIQUE: Bilateral full field digital CC and MLO mammographic images were obtained with 3D tomosyn thesis and utilizing computer aided detection (CAD). COMPARISON: Available for comparison. FINDINGS: Masses/Architectural Distortion: There is a new well-circumscribed 3-4 mm nodule in the posterior lef t breast on the MLO view. There are no areas of architectural distortion. Microcalcifications: No suspicious pleomorphic-type are seen. Skin Thickening/Nipple Retraction: None. IMPRESSION: 1. New 3-4 mm nodule in the posterior left breast on the MLO view. 2. This should be further evaluated with a spot compression view. Targeted left breast ultrasound ma y be indicated at that time. BI-RADS Category 0 - Incomplete: Need additional imaging evaluation Breast Density - Category B - Scattered areas of fibroglandular density Breast density category C or D implies that the patient has dense breast tissue. Dense breast tissue is very common and is not abnormal but dense breast tissue can make it harder to find cancer on a ma mmogram. Also, dense breast tissue may increase their breast cancer risk. This information about the result of the mammogram report was provided to the patient to raise their awareness. Use this report when you speak with the patient about their risks for breast cancer, which includes their family hist ory. At that time, you may recommend for more screening tests (Ultrasound or MRI) as they might be us eful based on their risk. A negative radiographic report should not delay biopsy if a dominant or clinically suspicious mass is present. Up to ten percent of cancers are not identified on mammography. A negative report may reinforce clinical impression. Adenosis and dense breasts may obscure an underlying neoplasm. False positive reports average 6 to 10%. Patient will receive a letter notifying them of these results.
== END 2024-11-09 00:33 ==
LOC: DI 00:13
PROVIDERS: PCP Family Medicine; Visit Provider Obstetrics & Gynecology Gynecology
DX: Z12.31 Encounter for screening mammogram for malignant neoplasm of breast (principal); R92.323 Mammographic fibroglandular density, bilateral breasts
CPT/HCPCS: 77063; 77067